=== PATIENT | male | born 1965 | race Caucasian/White ===

== ENCOUNTER 2019-04-21 13:02 | Day surgery (SDC) | payer OTHER ==
[~2019-04-21] VITALS: Ht 175.3 cm; Wt 96.1 kg
[~2019-04-21 13:02] MED LIST: BUPIVACAINE/PF-EPI 0.25% 1:200K ONE; FENTANYL PF 100 MCG/2ML ONE; MIDAZOLAM 1 MG/ML, 2ML ONE; NONE PER PT
[2019-04-21] MEDS ORDERED: LIDOCAINE-MPF 2% ,5ML ONE (13:03)
[2019-04-21] MEDS ORDERED: SCOPOLAMINE PATCH, 1.5MG PATCH.TD72 TD STA (13:16)
[2019-04-21] MEDS ORDERED: GABAPENTIN 300 MG CAPSULE PO STA (13:16)
[2019-04-21] MEDS ORDERED: ACETAMINOPHEN 500 MG TABLET PO STA (13:16)
[2019-04-21] MEDS ORDERED: LACTATED RINGERS 1,000 ML IV SCH (13:17)
[2019-04-21 13:31] VITALS: BP 156/98
[2019-04-21] MEDS ORDERED: CEFAZOLIN 1,000 MG ONE (14:00)
[2019-04-21] MEDS ORDERED: GLYCOPYRROLATE 0.2MG/1ML, 5ML ONE (14:00)
[2019-04-21] MEDS ORDERED: PROPOFOL 10 MG/ML, 20ML ONE (14:00)
[2019-04-21] MEDS ORDERED: DEXAMETHASONE 4 MG/ML, 1ML ONE (14:00)
[2019-04-21] MEDS ORDERED: NEOSTIGMINE 1 MG/ML, 10ML ONE (14:00)
[2019-04-21] MEDS ORDERED: ROCURONIUM 10MG/ML,5ML ONE (14:00)
[2019-04-21] MEDS ORDERED: ONDANSETRON 2MG/ML, 2ML ONE (14:00)
[2019-04-21] MEDS ORDERED: SUCCINYLCHOLINE 20 MG/ML, 10ML ONE (14:00)
[2019-04-21] MEDS ORDERED: EPINEPHRINE 1 MG/ML, 1ML ONE (14:38)
[2019-04-21] MEDS ORDERED: FENTANYL PF 100 MCG/2ML IV PRN (16:00)
[2019-04-21] MEDS ORDERED: LORazepam 2 MG/ML, 1ML IVPush PRN (16:00)
[2019-04-21] MEDS ORDERED: OXYcodone 5 MG/5 ML ORAL.SOL UDC PO PRN (16:00)
[2019-04-21] MEDS ORDERED: ONDANSETRON 2MG/ML, 2ML IV PRN ×2 (16:00→18:30)
[2019-04-21] MEDS ORDERED: PROMETHAZINE 25 MG/ML, 1ML IV PRN (16:00)
[2019-04-21] MEDS ORDERED: HYDROmorphone 2 MG/ML, 1ML IVPush PRN (16:00)
[2019-04-21] MEDS ORDERED: PROMETHAZINE 25 MG SUPP PR PRN (16:00)
[2019-04-21] MEDS ORDERED: ONDANSETRON ODT 8 MG PO PRN (16:00)
[2019-04-21] MEDS ORDERED: FENTANYL PF 100 MCG/2ML ONE (16:05)
[2019-04-21] MEDS ORDERED: OXYcodone/APAP 5/325MG TABLET PO PRN (18:30)
[2019-04-21] MEDS ORDERED: PROMETHAZINE 25 MG/ML, 1ML IM PRN (18:30)
[2019-04-21] MEDS ORDERED: morphine SULFATE 10 MG/ML, 1ML IV PRN (18:30)
[2019-04-21] MEDS ORDERED: KETOROLAC 30 MG/1 ML IV SCH (18:30)
[2019-04-21] MEDS ORDERED: ACETAMINOPHEN 325 MG TABLET PO PRN (18:30)
== END 2019-04-21 19:00 | disposition home or self-care (01) ==
LOC: OUT 13:02 → 4NE 17:49 → OUT 19:00
PROVIDERS: ATTEND Orthopaedic Surgery
DX: M75.111 Incomplete rotator cuff tear or rupture of right shoulder, not specified as traumatic (principal); M75.41 Impingement syndrome of right shoulder; M19.011 Primary osteoarthritis, right shoulder; M24.111 Other articular cartilage disorders, right shoulder; F15.90 Other stimulant use, unspecified, uncomplicated; Z72.89 Other problems related to lifestyle; Z88.0 Allergy status to penicillin
CPT/HCPCS: 29823; 29824; 29826; 29827; 64415; C1713; J0171; J0330; J0690; J1100; J2250; J2405; J2704; J2710; J3010; J7120; G0378